=== PATIENT | female | born 1970 | race Caucasian/White ===

== ENCOUNTER 2016-08-17 13:30 | Emergency (ER) | payer OTHER ==
[2016-08-17 13:40] VITALS: BP 150/97; PULSE 88; TEMP 98.5; BMI 28.3
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
== END 2016-08-17 14:13 | disposition home or self-care (01) ==
LOC: FER 13:30
DX: M23.91 Unspecified internal derangement of right knee (principal); F17.210 Nicotine dependence, cigarettes, uncomplicated
CPT/HCPCS: 99282-25

== ENCOUNTER 2018-09-06 14:33 | Emergency (ER) | payer OTHER ==
[2018-09-06 14:37] VITALS: BP 126/88; PULSE 82; TEMP 98.3; BMI 27.4
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
[2018-09-06] MEDS ORDERED: METHOCARBAMOL 500 MG TABLET PO ONE (15:12)
[2018-09-06] MEDS ORDERED: METHOCARBAMOL 500 MG TABLET ONE (15:15)
--- NOTE | 2018-09-06 16:32 | PDOC ---
Attending Attestation - Resident Resident Name: Kandice Roche - ED Attending Attestation I have performed the following: I have examined & evaluated the patient, The case was reviewed & discussed with the resident, I agree w/resident's findings & plan, Exceptions are as noted - HPI HPI: 09/06/18 16:29 48 F with several weeks of lower back pain. Pt complains of pain radiating down both legs. Denies any weakness/numbness. Denies incontinence or saddle anesthesia. Denies recent fall or trauma. Pt states she is able to ambulate without assistance but has pain when getting up from seated position. - Physicial Exam PE: 09/06/18 16:32 GENERAL: Awake, alert, and fully oriented, in no acute distress. HEAD: No signs of trauma EYES: PERRLA, EOMI, sclera anicteric, conjunctiva clear ENT: Auricles normal inspection, hearing grossly normal, nares patent, oropharynx clear without exudates. Moist mucosa NECK: Nontender, no stepoffs, Normal ROM, supple, no lymphadenopathy, JVD, or masses LUNGS: Breath sounds equal, clear to auscultation bilaterally. No wheezes, and no crackles HEART: Regular rate and rhythm, normal S1 and S2, no murmurs, rubs or gallops ABDOMEN: Soft, nontender, normoactive bowel sounds. No guarding, no rebound. No masses EXTREMITIES: Normal range of motion, no edema. No clubbing or cyanosis. No cords, erythema, or tenderness NEUROLOGICAL: Cranial nerves II through XII intact. 5/5 strength and sensation in all extremities, Normal speech, normal gait, normal cerebellar function SKIN: Warm, Dry, normal turgor, no rashes or lesions noted. BACK: + paraspinal lumbar TTP, no midline TTP, no stepoffs - Medical Decision Making 09/06/18 16:32 48 F with lower back pain. No neuro deficits or other signs of cauda equina or cord compression. - XR L spine unremarkable - Muscle relaxant, pain control given with some improvement in pain - F/u ortho spine Pt ambulating in ED without issue. Pt is well appearing, with normal vitals. Clinically stable for DC at this time. I discussed the physical exam findings, ancillary test results and final diagnoses with the patient. I answered all of the patient's questions. The patient was satisfied with the care received and felt comfortable with the discharge plan and treatment plan. The patient agrees to follow up with the primary care physician within 24-72 hours.
== END 2018-09-06 16:40 | disposition home or self-care (01) ==
LOC: FER 14:33
DX: M54.41 Lumbago with sciatica, right side (principal); F17.210 Nicotine dependence, cigarettes, uncomplicated
CPT/HCPCS: 72100-TC-FY; 99283-25

== ENCOUNTER 2018-09-26 14:14 | Emergency (ER) | payer OTHER | END 2018-09-26 15:07 | disposition home or self-care (01) | LOC: FER 14:14 ==

== ENCOUNTER 2019-01-29 13:47 | Emergency (ER) | payer OTHER ==
--- NOTE | 2019-01-29 14:00 | PDOC ---
Attending Attestation - Resident Resident Name: Sandee Galindo - ED Attending Attestation I have performed the following: I have examined & evaluated the patient, The case was reviewed & discussed with the resident, I agree w/resident's findings & plan, Exceptions are as noted - HPI HPI: 01/29/19 14:17 Pain left thumb for 3 weeks. Initially injured it while moving. Pain is worse at night. There is a "clicking" and subluxation at the IPJ. No distal numbness or tingling. No constitutional symptoms. - Physicial Exam PE: 01/29/19 14:18 Physical exam shows no deformity, swelling, erythema, heat. No distal sensory deficit. Full flexion and extension of the IP joint against resistance. However, with flexion there is subluxation of the joint suggestive of ligament injury. X-ray negative IPJ. Irregularity DR needs ortho f/u but prob not related to present sxs. 01/29/19 15:53 - Medical Decision Making 01/29/19 14:19 Assessment: Ligament injury IPJ left thumb, with intermittent joint subluxation. No persistent dislocation. Irregular calcification of the distal radius, almost a "moth-eaten" appearance, pt informed and discussed. Must f/u ortho. she agrees. has seen Dr. Yanez and will go back to him. Plan: Thumb spica splint and anti-inflammatories. No distal numbness or tingling , good motion. Refer to hand surgeon for further treatment. 01/29/19 15:50
[2019-01-29 14:02] VITALS: BP 109/68; PULSE 82; TEMP 98.2; BMI 26.6
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
== END 2019-01-29 15:50 | disposition home or self-care (01) ==
LOC: FER 13:47
PROC: 2W3DX1Z Immobilization of Left Lower Arm using Splint (ICD-10-PCS; principal; 2019-01-29)
DX: M79.645 Pain in left finger(s) (principal); M25.532 Pain in left wrist; M19.90 Unspecified osteoarthritis, unspecified site; G62.9 Polyneuropathy, unspecified
CPT/HCPCS: 29126; 73110-TC-LT-FY; 73130-TC-LT-FY; 99282-25

== ENCOUNTER 2020-02-29 16:39 | Emergency (ER) | payer OTHER ==
[2020-02-29 17:19] VITALS: BP 101/61; PULSE 74; TEMP 98; BMI 23.8
== END 2020-02-29 18:22 | disposition home or self-care (01) ==
LOC: FER 16:39
DX: S82.892A Other fracture of left lower leg, initial encounter for closed fracture (principal)
CPT/HCPCS: 73610-TC-RT-FY; 73630-TC-RT-FY; 99283-25